=== PATIENT | female | born 2000 | race Caucasian/White ===

== ENCOUNTER 2021-07-26 18:09 | Emergency (ER) | payer OTHER, SELFPAY ==
[2021-07-26 18:13] VITALS: BP 143/86; PULSE 84; RESP 14; TEMP 37; O2SAT 99; BMI 26.6
--- NOTE | 2021-07-26 18:18 | DI.RAD.S_ITS ---
PROCEDURE: XR ANKLE RT MIN 3V INDICATIONS: trip and fall TECHNIQUE: 3 views of the ankle were acquired. COMPARISON: None. FINDINGS: Bones: No fractures or dislocations. Ankle mortise is normally aligned. No suspicious bony lesions. Soft tissues: Soft tissue swelling over the lateral malleolus. IMPRESSION: No fracture. Soft tissue swelling over the lateral malleolus consistent with ligamentous injury. Dictated by: Dionicio Campbell M.D. on 07/26/2021 at 19:16 Approved by: Dionicio Campbell M.D. on 07/26/2021 at 19:17
--- NOTE | 2021-07-26 19:57 | ED_ITS ---
HPI - Extremity Injury (Lower) <Maeve Montanez PA-C - Last Filed: 07/26/21 20:08> General Chief Complaint: Extremity Injury, Lower Stated Complaint: Hurt ankle Time Seen by Provider: 07/26/21 18:23 History of Present Illness HPI Narrative: Patient is a 20-year-old female presenting with right ankle pain for 6 hours. She was walking her dog when she twisted her ankle on the side of a hill. She reports no initial pain or swelling so she continued walking for another mile. About 3 hours later she reported significant swelling and pain, and she was unable to bear weight on her ankle. She took Tylenol for pain and iced her ankle. She reports decreased range of motion. She states that her ankle swelling has already gone down since coming to the ER. She denies any numbness, tingling, sensation changes. She reports no prior injuries to this ankle, no daily medication medication use, and no other health conditions. Related Data Allergies Allergy/AdvReac Type Severity Reaction Status Date / Time No Known Drug Allergies Allergy Verified 07/26/21 18:17 Review of Systems <Maeve Montanez PA-C - Last Filed: 07/26/21 20:08> Review of Systems ROS Unobtainable: All systems reviewed & are unremarkable except as noted in HPI and below Constitutional Constitutional: Denies chills, Denies fatigue, Denies fever(s), Denies frequent falls, Denies lethargy and Denies weakness Eyes Eyes: Denies change in vision, Denies eye discharge, Denies irritation and Denies loss of vision ENT Ears, Nose, Mouth, and Throat: Denies change in voice, Denies dizziness, Denies sore throat and Denies throat swelling Cardiovascular Cardiovascular: Denies chest pain, Denies irregular heart rhythm, Denies lightheadedness, Denies palpitations, Denies dyspnea, Denies dyspnea on exertion and Denies orthopnea Respiratory Respiratory: Denies cough, Denies dyspnea, Denies dyspnea on exertion and Denies wheezing Gastrointestinal Gastrointestinal: Denies abdominal pain, Denies change in bowel habits, Denies diarrhea, Denies nausea and Denies vomiting Genitourinary Genitourinary: Denies hematuria, Denies flank pain, Denies urinary incontinence and Denies urinary urgency Musculoskeletal Musculoskeletal: Reports as per HPI, Reports abnormal gait, Reports arthralgias, Reports joint swelling, Reports limited range of motion, Denies numbness and Denies tingling Integumentary/Breasts Skin/Breast: Denies pruritus, Denies erythema, Denies rash and Denies wounds Neurologic Neurologic: Reports abnormal gait, Denies behavioral changes, Denies confusion, Denies dizziness, Denies frequent falls, Denies loss of vision, Denies numbness, Denies tingling and Denies weakness Psychiatric Psychiatric: Denies anxiety, Denies behavioral changes, Denies confusion, Denies depression, Denies homicidal ideation and Denies suicidal ideation Endocrine Endocrine: Denies fatigue, Denies flushing and Denies palpitations Hematologic/Lymphatic Hematologic/Lymphatic: Denies easy bruising Allergic/Immunologic Allergic/Immunologic: Denies urticaria, Denies throat swelling and Denies wheezing Patient History <Maeve Montanez PA-C - Last Filed: 07/26/21 20:08> Social History Smoking Status: Never smoker Smoking Status: Never smoker alcohol intake frequency: a few times a month Substance Use Type: marijuana Exam <Maeve Montanez PA-C - Last Filed: 07/26/21 20:08> Narrative Exam Narrative: GENERAL: [] year old patient appears stated age. Well-developed patient, in mild distress. HEAD: Atraumatic. Normocephalic. EYES: Pupils equal round and reactive. Extraocular motions intact. No scleral icterus. No injection or drainage. ENT: Nose without bleeding, purulent drainage. Throat without erythema, tonsillar hypertrophy or exudate. Airway patent. NECK: Trachea midline. Non tender CARDIOVASCULAR: Regular rate and rhythm without murmurs, gallops, or rubs. RESPIRATORY: Clear to auscultation. Breath sounds equal bilaterally. No wheezes, rales, or rhonchi. GASTROINTESTINAL: Abdomen soft, non-tender, nondistended. EXTREMITIES: Obvious swelling and tenderness to palpation over posterior ankle and right lateral malleolus, limited ROM that elicits pain, pulses present, no ecchymosis noted BACK: Nontender without deformity or crepitance. No flank tenderness. NEURO: AOx3. SKIN: No rash or erythema of visible areas Initial Vital Signs Initial Vital Signs: Vital Signs Temperature 98.6 F 07/26/21 18:13 Pulse Rate 84 07/26/21 18:13 Respiratory Rate 14 07/26/21 18:13 Blood Pressure 143/86 H 07/26/21 18:13 Pulse Oximetry 99 07/26/21 18:13 Course <Maeve Montanez PA-C - Last Filed: 07/26/21 20:08> Orders Ordered: ED Orders 07/26/21 18:18 XR ankle RT min 3V Stat Vital Signs Vital signs: Vital Signs - 8 hr 07/26/21 18:13 Temperature 98.6 F Pulse Rate 84 Respiratory Rate 14 Blood Pressure 143/86 H Pulse Oximetry 99 MDM - Extremity Injury (Lower) <Maeve Montanez PA-C - Last Filed: 07/26/21 20:08> Imaging Data Extremity x-ray #1: Radiologist's Impression: [address] [address] XRay Report Signed Patient: Major Paez MR#: [id number] : 2000 Acct:[id number] Age/Sex: 20 / F Date of Service: 07/26/21 Loc: ED Accession Number: [id number] ?? Procedure: XR ankle RT min 3V Ordering Provider: Alok Rodriguez MD PROCEDURE:? XR ANKLE RT MIN 3V ? INDICATIONS:? trip and fall ? TECHNIQUE:? 3 views of the ankle were acquired.? ? COMPARISON:? None. ? FINDINGS:? ? Bones:? No fractures or dislocations.? Ankle mortise is normally aligned.? No suspicious bony lesions.? ? Soft tissues:? Soft tissue swelling over the lateral malleolus. ? ? IMPRESSION:? No fracture.? Soft tissue swelling over the lateral malleolus consistent with ligamentous injury. ? Dictated by: Dionicio Campbell M.D. on 07/26/2021 at 19:16 ? ? Approved by: Dionicio Campbell M.D. on 07/26/2021 at 19:17 ? [facility] Narrative Medical decision making narrative: Patient is a 20-year-old female presenting with right ankle pain for 6 hours. X-ray came back as normal. Upon physical exam patient has had swelling and tenderness along the lateral malleolus and posterior ankle. Based on HPI and physical exam, patient likely suffering from an ankle sprain. She was offered a boot which she declined. She was given crutches and instructed to refrain from bearing weight on ankle as much as as possible. She was instructed to rest, elevate, ice ankle. She was also instructed to take ibuprofen as needed for pain and inflammation control. I counseled patient that this condition may take up to 2-4 weeks before full resolution and she should refrain from exercise until symptoms subside. Findings and discharge diagnosis discussed with patient/family followed by verbalization of understanding Return precautions discussed with patient/family whom verbalize understanding. Discharge Plan Departure Patient Disposition: Home Clinical Impression: Ankle sprain and strain Instructions: DI for Ankle Sprain Activity Restrictions/Additional Instructions: *You have been diagnosed with a right ankle sprain. Please rest, elevate, ice, and refrain from bearing weight on your ankle when possible. You should take ibuprofen as needed with food to decrease pain and inflammation. You should refrain from exercise until conditions improves. This condition can take 2-4 weeks before healing. Please return to the ER if significant swelling, worsening pain, reduced mobility, chest pain or shortness of breath occurs. *What to do: *Please continue to take your regular medications as directed. [ ] New medication prescriptions sent to your pharmacy: [ ] [ ] New medication written as a paper prescription [X] No new medications given *Please follow up with your primary care provider in 2-3 days, call for an appointment. Let them know you were seen in the Emergency Department and that we ask that you be seen in follow up. We will electronically transmit a record of today's note if your PCP is in our system *If you do not have a primary care provider please contact the [facility] Call Center at [phone] and they can help get you set up with a doctor in the community. *Return to Emergency Department if you should have any new, worsening or concerning symptoms, such as [fever greater than 101 F, shaking chills, worsening pain, persistent vomiting or other bothersome symptoms] Referrals: Miscellaneous,Doctor, [Non-Staff] -
== END 2021-07-26 19:55 | disposition home or self-care (01) ==
PROVIDERS: Emergency Provider Physician Assistant
DX: S93.401A Sprain of unspecified ligament of right ankle, initial encounter (principal); X50.1XXA Overexertion from prolonged static or awkward postures, initial encounter; Y93.K1 Activity, walking an animal
CPT/HCPCS: 73610; 99283